=== PATIENT | female | born 1950 | race Caucasian/White ===

== ENCOUNTER 2018-12-10 00:20 | Inpatient (IN) | payer MEDICARE, OTHER ==
[~2018-12-10] VITALS: Ht 160 cm; Wt 73.9 kg
[2018-12-10] MEDS ORDERED: LEVOTHYROXINE88 MCG PO (00:36)
[2018-12-10] MEDS ORDERED: BUPROPION XL150 MG PO (00:36)
[2018-12-10] MEDS ORDERED: RISPERIDONE4 MG PO (00:36)
--- NOTE | 2018-12-10 05:01 | NUR ---
ASSESSMENT DONE. pt ALERT AND AWAKE. SITTING IN BED. STATED "I'M BREATHING BETTER" DENIES SOB. IV ABX COMPLETE, SL. NO REQUESTS AT THIS TIME. CALL LIGHT WITHIN REACH.
--- NOTE | 2018-12-10 06:15 | NUR ---
MEDICATION DUE. GIVEN (SEE MAR). UP TO TOILET AND BACK TO BED. DESAT TO 86% WITH 4L O2. SAT UP TO 91% AFTER 1 MINUTE RECOVERY. VSS. CALL LIGHT WITHIN REACH. NO REQUESTS AT THIS TIME.
--- NOTE | 2018-12-10 07:36 | NUR ---
pt RESTED DURING SHIFT. 4L O2 TO MAINTAIN SATS, CPOX. TELE 6. DID NOT VOIDING DURING SHIFT. IV SL. HAS NOT USED CALL LIGHT
--- NOTE | 2018-12-10 08:11 | NUR ---
Pt sleeping, resp even and non labored. Pt is on 4L oxygen, sat level is 91%. Pt's flacc 0/10. Call light within reach. No needs at this time.
--- NOTE | 2018-12-10 12:02 | NUR ---
Medications reconciled using pharmacy records and patient interview
--- NOTE | 2018-12-10 12:19 | EKG ---
[facility] [address] [place], [place] [address] Signed Sinus tachycardia Cannot rule out Anterior infarct , age undetermined Abnormal ECG No previous ECGs available Confirmed by DAVID SAUNDERS DO ([id number]) on 12/10/2018 12:19:09 PM Electronically Signed By: DAVID SAUNDERS DO 12/10/18 1219 PATIENT NAME: YANETH CAMPOS Electrocardiogram DATE OF : 48 PHYSICIAN: DAVID SAUNDERS DO REPORT #: [id number] REPORT IS CONFIDENTIAL AND NOT TO BE RELEASED WITHOUT AUTHORIZATION
--- NOTE | 2018-12-10 14:15 | NUR ---
PT AWAKE, ALERT AND ORIENTED X3. PT DENIES PAIN AND SOB. PERSONAL SUPPLIES AND CALL LIGHT WITHIN REACH. NO NEEDS AT THIS TIME. OXYGEN SATURATION LEVEL IS 95% ON RA.
--- NOTE | 2018-12-10 14:45 | NUR ---
PT SITTING UP IN BED, DENIES CHEST PAIN AND SOB. PT HAS NOTABLE COUGH, NON PRODUCTIVE. PT DENIES PAIN. PERSONAL SUPPLIES AND CALL LIGHT WITHIN REACH. NO NEEDS AT THIS TIME.
--- NOTE | 2018-12-10 19:18 | NUR ---
REPORT RECEIVED, PT RESTING IN BED, AOX4, VISITING WITH STAFF, NO REQUESTS AT THIS TIME, PT ON 4LNC, O2 SAT 89%, ON CPOX, NO C/O SOB/CP, IV FLUIDS INFUSING PER EMAR WNL, CALL LIGHT WITHIN REACH, FALL PRECAUTIONS IN PLACE.
--- NOTE | 2018-12-10 21:20 | NUR ---
VS and I&Os were complete.
--- NOTE | 2018-12-10 21:45 | NUR ---
IN ROOM TO ADMIN EVENING MEDS, PT AOX4, APPROPRIATE, PT ON 5LNC, O2 SAT 89-91%, HR 80'S, PT DENIES SOB/CP, NOTED TO HAVE A PERSISTANT WHEEZY COUGH, NONPRODUCTIVE. PT DENIES ANY PAIN, LS HAVE EXP. WHEEZES IN BILATERAL UPPER BASES, AND IS DIMINISHED IN BILATERAL LOWER BASES, PT ENCOURAGED TO C/D/B, IS/CPT AT BEDSIDE. PT DENIES ANY NEEDS AT THIS TIME, IV SL, FLUSHES WELL, CALL LIGHT WITHIN REACH, BED ALARM ON. CPOX ON.
--- NOTE | 2018-12-10 21:49 | NUR ---
HELENA Carson asked for assistance with a complete bed change and assistance with helping the patient change her clothing.
--- NOTE | 2018-12-11 00:36 | NUR ---
PT RESTING IN BED, EYES CLOSED, BREATHS EVEN, UNLABORED, ON 5LNC, O2 SAT 89%, NO REQUESTS AT THIS TIME, CALL LIGHT WITHIN REACH. BED ALARM ON. FALL PRECAUTIONS IN PLACE.
--- NOTE | 2018-12-11 01:53 | NUR ---
patient needed to use the restroom. after i finished helping her she asked for a cup of apple juice. call light and bedside table are within reach.
--- NOTE | 2018-12-11 02:20 | NUR ---
PT RESTING IN BED, EYES CLOSED, BREATHS EVEN, UNLABORED, ON 5LNC, O2 SAT 89%, HR 90'S, CALL LIGHT WITHIN REACH, FALL PRECAUTIONS IN PLACE.
--- NOTE | 2018-12-11 02:46 | NUR ---
PT AWAKE, ON 5LNC, O2 SAT 84%, PT COUGHING, STATES THAT SHE FEELS SOB, DENIES CHEST PAIN, PT AGREEABLE TO PRN BREATHING TREATMENT, PT'S RR 22, LS WHEEZY THROUGHOUT, DIMINSHED LOWER LOBES BILATERALLY. RT CALLED FOR PRN NEB TX, IN ROOM WITH PT NOW.
--- NOTE | 2018-12-11 03:00 | NUR ---
NEB TX GIVEN BY RT, PT STATES THAT SHE FEELS SHE IS BREATHING MUCH BETTER NOW, DECREASED WHEEZES NOTED IN BILATERAL UPPER LOBES, PT PLACED ON OXY MASK AT 2L, O2 SAT 92%, NO C/O SOB/CP, TOLERATING THE MASK MUCH BETTER THAN THE NASAL CANNULA, CALL LIGHT WITHIN REACH, FALL PRECAUTIONS IN PLACE. BED ALARM ON.
--- NOTE | 2018-12-11 04:13 | NUR ---
PT RESTING IN BED, ON 2L OXY MASK, O2 SAT 90-92%, NO C/O SOB/CP, PT CONTINUES TO HAVE CONGESTED, NONPRODUCTIVE COUGH, PT ENCOURAGED TO USE IS/CPT, NO REQUESTS AT THIS TIME, CALL LIGHT WITHIN REACH.
--- NOTE | 2018-12-11 05:52 | NUR ---
PT AOX4 THIS SHIFT, APPROPRIATE, FLAT AFFECT, IV SL, FLUSHES WELL, VSS, CPOX ON, PT ON 2L W/OXYMASK, O2 SAT 90-92%, TOLERATING WELL, PRN NEB GIVEN X1 ALONG WITH SCHEDULED NEBS THIS SHIFT, OCCASIONAL SOB WITH EXERTION WELL WHEN PT REMOVES OXYGEN. AFEBRILE, URINE OUTPUT QS, CALLS APPROPRIATELY.
--- NOTE | 2018-12-11 06:36 | NUR ---
VS and I&Os were complete.
--- NOTE | 2018-12-11 07:10 | NUR ---
BEDSIDE HANDOFF REPORT RECEIVD FROM DENTAL COORDINATOR RN. PT RESTING IN BED. O2 SAT S94% ON 2L OXYMASK, TITRATED TO 1L OXYMASK. PT DENIES OTHER NEEDS AT THIS TIME.
--- NOTE | 2018-12-11 08:05 | NUR ---
PT RESTING IN BED. PT O2 SATS 88% ON 1L NC, INCREASED TO 2L NC, PT DENIES SOB, LUNGSOUNDS WITH EXPIRATORY WHEEZE AND DIMINIHSED BASES. PT WITH GOOD APPETITE, TOLERATING REGULAR DIET, BOWEL TONES ACTIVE, DENIES NAUSEA. PT SL. CMS INTACT, WITHTOUT EDEMA. DISCUSSED PLAN OF CARE FOR THE DAY, MORNING MEDICATIONS ADMINISTERED. PT DENIES OTHER NEEDS AT THIS TIME.
--- NOTE | 2018-12-11 08:21 | NUR ---
PATIENT UP TO CHAIR, 1PA FWW. CALL LIGHT IN REACH. NO FURTHER NEEDS AT THIS TIME.
--- NOTE | 2018-12-11 09:22 | NUR ---
PATIENT UP TO BATHROOM AND BACK TO BED, SBA. CALL LIGHT IN REACH. NO FURTHER NEEDS AT THIS TIME.
--- NOTE | 2018-12-11 10:30 | NUR ---
PT WEANED TO 1L NC. PT DENIES OTHER NEEDS AT THIS TIME.
--- NOTE | 2018-12-11 14:13 | NUR ---
PT RESTING IN BED, NOTICIBLY SOB, ON O2 NC. PT STATED SHE IS JUST HAVING A HARD TIME PREATHING. SHE STATED SHE DID NOT HAVE O2 AT HOME BEFORE ADMISSION. THANKED ME FOR COMING BY, EXTENDED A BLESSING, SHE SMILED AND THANKED ME. WILL FOLLOW NEEDED
--- NOTE | 2018-12-11 14:45 | NUR ---
PT RESTING IN BED. PT ON 1L NC, LUNG SOUNDS WITH EXPIRATORY WHEEZE, DIMINISHED BASES. NO ACUTE CHANGES. PT DENIES PAIN. IV SOLUMEDROL GIVEN. PT DENIES OTHER NEEDS AT THIS TIME.
--- NOTE | 2018-12-11 14:46 | NUR ---
PT STATES THAT IF SHE DOES NEED TO GO HOME ON O2 THEN SHE WOULD LIKE TO USE IN HOME MED FOR IT. PT LIVES AT HER OWN APARTMENT. STATES SHE WOULD LIKE HER SON LISTED FOR EMERGENCY CONTACT, BUT SHE STATES HE HAS A EMAIL ADDRESS AND I DON'T KNOW IT. I DON'T KNOW THE PHONE NUMBERS.
--- NOTE | 2018-12-11 15:17 | NUR ---
PT CALL LIGHT ON. PT REQUESTS ASSISTANCE UP TO RESTROOM. SBA UP TO TOILET, PT VOIDS WITHOUT ISSUE. PT BACK TO BED. PULSE OX ON, O2 SATURATION AT 90% ON 1L O2. BED RAILS UP. CALL LIGHT WITHIN REACH.
--- NOTE | 2018-12-11 16:30 | NUR ---
PT WEANED TO 1L NC, O2 SATS 88-90%. PT RESTING IN BED. PT DENIES OTHER NEEDS AT THIS TIME.
--- NOTE | 2018-12-11 18:05 | NUR ---
PT LUNG SOUNDS WITH EXPIRATORY WHEEZE, CONTINUES TO HAVE NON PRODUCTIVE COUGH. PT REQUIRING 1L FOR MAJORITY OF SHIFT, INCREASED TO 2-3L WITH ACTIVITY, RECOVERS QUICKLY. PT DENIES PAIN. TOLERATING REGULAR DIET. PT SALINE LOCKED, IV SOLUMEDROL. PT SBA TO BATHROOM, VOIDING QS.
--- NOTE | 2018-12-11 19:22 | NUR ---
CHARGE NURSE REPORT RECEIVED FROM JADE. PT AWAKE, WITH O2 IN PLACE. DENIES NEEDS
--- NOTE | 2018-12-11 19:51 | NUR ---
RECEIVED REPORT FROM DAY SHIFT RN. PATIENT IS RESTING IN BED WATCHING TV. PATIENT DENIES ANY NEEDS. CALL LIGHT IN REACH.
--- NOTE | 2018-12-11 20:34 | NUR ---
ASSISTED PT TO BATHROOM, AND GAVE CUP COFFEE. SBA. NO OTHER NEEDS.
--- NOTE | 2018-12-11 21:35 | NUR ---
PATIENT ASSESMENT COMPLETED. PATIENT DENIES ANY PAIN OR SOB. PATIENT IS RESTING IN BED. PATIENT IS ON 1L VIA NC. CPOX IN USE. PATIENTS EVENING MEDICATIONS GIVEN PER ORDER. PATIENTS VITALS TAKEN AND RECORDED. INTAKE AND OUPUT RECORDED. PATIENT DENIES ANY NEEDS. RT IN THE ROOM. CALL LIGHT IN REACH.
--- NOTE | 2018-12-12 00:14 | NUR ---
PATIENT CALLED WANTING COFFEE. GIVEN DECAF.
--- NOTE | 2018-12-12 00:15 | NUR ---
PATIENT IS RESTING IN BED. RT IN RROM TO ADMIN NEB. PATIENT DENIES ANY SOB. PATIENT REMAINS ON 1L VA NC. CPOX WNL. CALL LIGHT IN REACH.
--- NOTE | 2018-12-12 02:53 | NUR ---
PATIENT ASSISTED TO THE RESTROOM A SBA. PATIENT IS NOW CARRYING HER PURSE EVERYWHERE WITH HER. PATIENT IS BACK IN BED RESTING. PATIENT REMAINS ON 1L VIA NC. PATIENT DENIES ANY NEEDS. CALL LIGHT IN REACH.
--- NOTE | 2018-12-12 03:28 | NUR ---
PATIENT CALLED AND ASK FOR FRUIT JUICE. CRANBERRY JUICE GIVEN.
--- NOTE | 2018-12-12 04:23 | NUR ---
PATIENT IS RESTING IN BED. PATIENT PROVIDED WITH DECAF COFFEE PER REQUEST. NO FURTHER NEEDS NOTED. CALL LIGHT IN REACH.
--- NOTE | 2018-12-12 04:54 | NUR ---
PATIENT HAS NOT RESTED DURING THIS SHIFT. PATIENT IS ON A REGULAR DIET AND IS TOLERATING IT WELL, NO COMPLAINTS OF NAUSEA. PATIENT IS ON 1L VIA NC. CPOX IN PLACE. PATIENT DENIED SOB. PATIENT IS A SBA. PATIENT IS DOING IS AND ACAPELLA. PATIENT IS WORKING WITH PT. PATIENT HAS A FLAT AFFECT. PATIENT USES CALL LIGHT APPROPRIATELY.
--- NOTE | 2018-12-12 06:16 | NUR ---
PATIENTS MORNING MEDICATIONS GIVEN PER ORDER. PATIENT IS RESTING IN BED WITH EYES CLOSED WHEN ROOM WAS ENTERED. PATIENT DENIES ANY SOB. CPOX WNL. NO NEEDS NOTED. CALL LIGHT IN REACH.
--- NOTE | 2018-12-12 07:10 | NUR ---
BEDSIDE HANDOFF REPORT RECEIVED FROM SEED CLEANING MANAGER RN. PT RESTING IN BED. O2 SATS 88% ON 1L NC. PT DENIES NEEDS AT THIS TIME.
--- NOTE | 2018-12-12 08:26 | NUR ---
PATIENT UP TO BATHROOM AND BACK TO BED, SBA. CALL LIGHT IN REACH. NO FURTHER NEEDS AT THIS TIME.
--- NOTE | 2018-12-12 09:12 | NUR ---
PT RESTING IN BED. PT O2 SATS 88-90% ON 1L NC, ATTEMPTED ROOM AIR, DESAT TO 85%, LUNG SOUNDS WITH EXPIRATORY WHEEZE AND DIM BASES. PT TOLERATING REGULAR DIET, DENIES NAUSE, BOWEL TONES ACTIVE. IV SALINE LOCKED, FLUSHED, PATENT. CMS INTACT, WITHOUT EDEMA. PT ASKING IF SHE WILL BE DISCHARGED TODAY, DISCUSSED WITH PT. PT DENIES OTHER NEED AT THIS TIME. CALL LIGHT WITHIN REACH.
--- NOTE | 2018-12-12 10:12 | NUR ---
PT RESTING IN BED. PT DENIES NEEDS AT THIS TIME.
[2018-12-12] MEDS ORDERED: IPRAT-ALBUT 0.5-3 ML INH (10:37)
[2018-12-12] MEDS ORDERED: ALBUTEROL2.5 MG/3 M INH (10:37)
[2018-12-12] MEDS ORDERED: PREDNISONE20 MG PO (10:54)
--- NOTE | 2018-12-12 12:02 | NUR ---
FAXED CHART NOTES INCLUDING FACE SHEET, ORDERS, H AND P, DC SUMMARY WITH F 2 F ADDENDUM TO [facility]. CALLED AND TALKED WITH GARRICK THERE, SHE STATED THEY WOULD WATCH FOR THE ORDER TO COME THROUGH. RECIEVED FAX CONFIRMATION.
--- NOTE | 2018-12-12 12:03 | NUR ---
PT RESTING IN BED, WATCHING TV. PT MENTIONED THAT SHE IS FEELING MUCH BETTER HOPES TO BE DC'D TODAY. PT STILL HAS O2 NC IN USE. SHE THANKED ME FOR COMING BY, WILL FOLLOW NEEDED
== END 2018-12-12 13:35 | disposition home health service (06) | DRG 189 ==
LOC: ED 00:20 → MS 00:21
PROVIDERS: ADMIT Student in an Organized Health Care Education/Training Program
DX: J96.21 Acute and chronic respiratory failure with hypoxia (principal); F20.0 Paranoid schizophrenia; E87.1 Hypo-osmolality and hyponatremia; J43.9 Emphysema, unspecified; E03.9 Hypothyroidism, unspecified; F17.290 Nicotine dependence, other tobacco product, uncomplicated; E86.0 Dehydration; Z79.899 Other long term (current) drug therapy
CPT/HCPCS: 36415; 71045; 80048; 80053; 82550; 82553; 83605; 83874; 83880; 84484; 85025; 87502; 93005; 93010; 94640; 94645; 94667; 94668; 94761; 94762; 96365; 96375; 99285-25; 99406; J0456; J1650; J2930; J7120